=== PATIENT | female | born 1950 | race Caucasian/White ===

== ENCOUNTER 2017-08-06 20:41 | Emergency (ER) | payer OTHER ==
[2017-08-07] MEDS: IPRATROPIUM (NEB) 0.5 MG/2.5 ML AMP HHN (01:11)
[2017-08-07] MEDS: ALBUTEROL 0.083% (NEB) 2.5 MG/3 ML AMP NEB (01:11)
[2017-08-10] MEDS ORDERED: IPRATROPIUM (NEB) 0.5 MG/2.5 ML AMP NEB (16:43)
[2017-08-10] MEDS ORDERED: ALBUTEROL 0.083% (NEB) 2.5 MG/3 ML AMP NEB (16:43)
[2017-08-10] MEDS ORDERED: KETOROLAC 30 MG INJ IV (16:43)
[2017-08-10] MEDS ORDERED: SOD CHLORIDE 0.9% 500 ML IV (16:43)
== END 2017-08-07 03:45 | disposition home or self-care (01) ==
LOC: FTE 20:41
DX: J44.0 Chronic obstructive pulmonary disease with (acute) lower respiratory infection (principal); J20.9 Acute bronchitis, unspecified; Z79.82 Long term (current) use of aspirin
CPT/HCPCS: 71045; 94664; 99284-25

== ENCOUNTER 2017-08-10 13:55 | Inpatient (IN) | payer OTHER ==
[2017-08-10] MEDS: IPRATROPIUM (NEB) 0.5 MG/2.5 ML AMP NEB (17:17)
[2017-08-10] MEDS: ALBUTEROL 0.083% (NEB) 2.5 MG/3 ML AMP NEB (17:17)
[2017-08-10 17:20] LABS: ADD MAN DIFF? NO
[2017-08-10] MEDS: SOD CHLORIDE 0.9% 500 ML IV (17:24)
[2017-08-10] MEDS: KETOROLAC 30 MG INJ IV (17:27)
[2017-08-10 17:29] LABS: WHITE BLOOD COUNT 12.1 10^3/ul (4.8-10.8)
[2017-08-10 17:29] LABS: BASOPHILS % 0.2 % (0.0-2.0); HEMOGLOBIN 10.9 g/dl (12.0-16.0); LYMPHOCYTES # 3.4 10^3/ul (0.8-2.9); LYMPHOCYTES % 27.7 % (15.0-51.0); MEAN CORPUSCULAR HEMOGLOBIN 22.1 pg (29.0-33.0); MEAN CORPUSCULAR HGB CONC 32.1 g/dl (32.0-37.0); MONOCYTE # 0.4 10^3/ul (0.3-0.9); MONOCYTES % 3.2 % (0.0-11.0); NEUTROPHIL # 8.2 10^3/ul (1.6-7.5); NEUTROPHILS % 67.4 % (39.0-77.0); PLATELET COUNT 181 10^3/UL (140-415); RED BLOOD COUNT 4.93 10^6/ul (4.20-5.40); RED CELL DISTRIBUTION WIDTH 15.7 % (11.5-14.5)
[2017-08-10 17:49] LABS: INR 1.18; PROTIME 15.2 Sec (11.9-14.9); PT RATIO 1.2
[2017-08-10 17:50] LABS: PARTIAL THROMBOPLASTIN TIME 27.3 Sec (25.0-35.0)
[2017-08-10 17:52] LABS: D-DIMER 766.36 ng/ml (<460)
[2017-08-10 17:55] LABS: ANION GAP 17 (8-16); BLOOD UREA NITROGEN 12 mg/dl (7-20); CALCIUM 8.5 mg/dl (8.4-10.2); CARBON DIOXIDE 27 mmol/L (21-31); CHLORIDE 98 mmol/L (97-110); CREATININE 0.63 mg/dl (0.44-1.00); GLUCOSE 395 mg/dl (70-220); POTASSIUM 3.9 mmol/L (3.5-5.1); SODIUM 138 mmol/L (135-144)
[2017-08-10 18:07] LABS: TROPONIN-I < 0.012 ng/ml (0.00-0.12)
[2017-08-10] MEDS: IOHEXOL 100 ML (20:06)
[2017-08-10] MEDS: SOD CHLORIDE 0.9% 100 ML (20:06)
[2017-08-10] MEDS: IOHEXOL 350MG/ML 50 ML BTL (20:06)
[2017-08-10] MEDS: CEFTRIAXONE 1 GM/50 ML (PMX) 50 ML IVPB (22:20)
[2017-08-10] MEDS: AZITHROMYCIN 500MG/NS (PMX) 250 ML IV (22:20)
[2017-08-10] MEDS: SODIUM CHLORIDE 0.9% 1L BAG IV* (22:21)
[2017-08-10 22:29] LABS: LACTIC ACID 1.1 mmol/L (0.5-2.0)
[2017-08-10] MEDS ORDERED: ONDANSETRON 4 MG INJ IV ×2 (22:30→23:30)
[2017-08-10] MEDS ORDERED: ACETAMINOPHEN 325 MG TAB PO (22:30)
[2017-08-10] MEDS ORDERED: BISACODYL (EC) 5 MG TAB PO (23:30)
[2017-08-10] MEDS ORDERED: HYDROCODONE/APAP (5/325) TAB PO (23:30)
[2017-08-10] MEDS ORDERED: ALBUTEROL/IPRATROPIUM (NEB) 3 ML AMP HHN (23:30)
[2017-08-10] MEDS: SALMETEROL/FLUTICASONE 500/50 INHA INH (23:30)
[2017-08-10] MEDS ORDERED: NACL 0.9% 3 ML SYG IV (23:30)
[2017-08-10] MEDS ORDERED: DOCUSATE SODIUM 100 MG CAP PO (23:30)
[2017-08-10] MEDS ORDERED: GLUCAGON 1 MG INJ IM (23:45)
[2017-08-10] MEDS ORDERED: GLUCOSE GEL 15 GRAM TUBE PO ×2 (23:45)
[2017-08-10] MEDS ORDERED: DEXTROSE 50% 50 ML SYRINGE IV ×2 (23:45)
[2017-08-10] MEDS ORDERED: GLUCOSE GEL 15 GRAM TUBE BUCCAL (23:45)
[2017-08-10] MEDS: INSULIN REGULAR, HUMAN 100 UNIT/1 ML 3ML VIAL SC (23:58)
[2017-08-11] MEDS: ACCU-CHEK XX (01:56)
[2017-08-11 02:14] LABS: LACTIC ACID 1.7 mmol/L (0.5-2.0)
[2017-08-11] MEDS: LEVOFLOXACIN 750MG/D5W (PMX) 150 ML IVPB ×2 (04:00→06:51)
[2017-08-11 05:48] LABS: ADD MAN DIFF? NO
[2017-08-11 05:58] LABS: BASOPHILS % 0.1 % (0.0-2.0); EOSINOPHILS % 0.3 % (0.0-7.0); HEMOGLOBIN 9.1 g/dl (12.0-16.0); LYMPHOCYTES # 3.3 10^3/ul (0.8-2.9); MEAN CORPUSCULAR HEMOGLOBIN 21.9 pg (29.0-33.0); MEAN CORPUSCULAR HGB CONC 31.4 g/dl (32.0-37.0); MEAN CORPUSCULAR VOLUME 69.7 fl (82.0-101.0); MEAN PLATELET VOLUME 9.9 fl (7.4-10.4); MONOCYTE # 0.3 10^3/ul (0.3-0.9); MONOCYTES % 3.9 % (0.0-11.0); NEUTROPHIL # 4.1 10^3/ul (1.6-7.5); NEUTROPHILS % 52.4 % (39.0-77.0); PLATELET COUNT 171 10^3/UL (140-415); RED BLOOD COUNT 4.16 10^6/ul (4.20-5.40); RED CELL DISTRIBUTION WIDTH 15.9 % (11.5-14.5)
[2017-08-11 05:58] LABS: WHITE BLOOD COUNT 7.7 10^3/ul (4.8-10.8)
[2017-08-11 06:08] LABS: HEMOGLOBIN A1C 7.8 % (0-5.9)
[2017-08-11 06:21] LABS: LACTIC ACID 1.6 mmol/L (0.5-2.0)
[2017-08-11 06:30] LABS: ALANINE AMINOTRANSFERASE 30 IU/L (13-69); ALBUMIN 2.9 g/dl (3.3-4.9); ALBUMIN/GLOBULIN RATIO 1.81; ALKALINE PHOSPHATASE 85 IU/L (42-121); ANION GAP 16 (8-16); ASPARTATE AMINO TRANSFERASE 10 IU/L (15-46); BILIRUBIN,INDIRECT 0.1 mg/dl (0-1.1); BILIRUBIN,TOTAL 0.1 mg/dl (0.2-1.3); BLOOD UREA NITROGEN 10 mg/dl (7-20); CALCIUM 7.9 mg/dl (8.4-10.2); CARBON DIOXIDE 29 mmol/L (21-31); CHLORIDE 105 mmol/L (97-110); CHOL/HDL RATIO 3.7 RATIO; CHOLESTEROL 100 mg/dl (100-200); CREATININE 0.52 mg/dl (0.44-1.00); GLUCOSE 110 mg/dl (70-220); HDL CHOLESTEROL 27 mg/dl (35-98); LDL CHOLESTEROL,CALCULATED 46 mg/dl; POTASSIUM 3.7 mmol/L (3.5-5.1); SODIUM 146 mmol/L (135-144); TOTAL PROTEIN 4.5 g/dl (6.1-8.1); TRIGLYCERIDES 135 mg/dl (0-149)
[2017-08-11 06:57] LABS: THYROID STIMULATING HORMONE 0.953 MIU/L (0.465-4.680)
[2017-08-11] MEDS: INSULIN ASPART [NOVOLOG] 3 ML PEN SC ×4 (08:00→20:34)
[2017-08-11] MEDS: LORATADINE 10 MG TAB PO (08:52)
[2017-08-11] MEDS: SALMETEROL/FLUTICASONE 500/50 INHA INH ×2 (08:52→20:32)
[2017-08-11] MEDS ORDERED: VANCOMYCIN IV PER PHARMACY XX (09:30)
[2017-08-11] MEDS ORDERED: predniSONE 20 MG TAB PO (09:30)
[2017-08-11] MEDS ORDERED: FUROSEMIDE 40 MG TAB PO (11:00)
[2017-08-11 11:24] LABS: IRON 24 ug/dl (35-150)
[2017-08-11 11:34] LABS: % IRON SATURATION 12 % SAT (22-52); TOTAL IRON BINDING CAPACITY 206 ug/dl (241-421)
[2017-08-11] MEDS: predniSONE 20 MG TAB PO (11:53)
[2017-08-11 13:21] LABS: FERRITIN 88.8 ng/ml (11.1-264.0)
[2017-08-11] MEDS: VANCOMYCIN 1.5 GM in SOD CHLORIDE 0.9% 250 ML IVPB (14:31)
[2017-08-12] MEDS: VANCOMYCIN 1 GM 250 ML IVPB ×2 (01:06→12:14)
[2017-08-12] MEDS: ACCU-CHEK XX (02:00)
[2017-08-12] MEDS: LEVOFLOXACIN 750MG/D5W (PMX) 150 ML IVPB (04:08)
[2017-08-12] MEDS: INSULIN ASPART [NOVOLOG] 3 ML PEN SC ×6 (07:57→20:55)
[2017-08-12] MEDS: LORATADINE 10 MG TAB PO (08:00)
[2017-08-12] MEDS: predniSONE 20 MG TAB PO (08:00)
[2017-08-12] MEDS: SALMETEROL/FLUTICASONE 500/50 INHA INH ×2 (08:00→20:53)
[2017-08-12 11:22] LABS: ADD MAN DIFF? NO
[2017-08-12 11:26] LABS: WHITE BLOOD COUNT 8.2 10^3/ul (4.8-10.8)
[2017-08-12 11:27] LABS: BASOPHILS % 0.1 % (0.0-2.0); EOSINOPHILS % 0.2 % (0.0-7.0); HEMATOCRIT 29.9 % (37.0-47.0); HEMOGLOBIN 9.7 g/dl (12.0-16.0); LYMPHOCYTES % 24.5 % (15.0-51.0); MEAN CORPUSCULAR HEMOGLOBIN 22.2 pg (29.0-33.0); MEAN CORPUSCULAR HGB CONC 32.4 g/dl (32.0-37.0); MEAN CORPUSCULAR VOLUME 68.6 fl (82.0-101.0); MEAN PLATELET VOLUME 9.9 fl (7.4-10.4); MONOCYTE # 0.2 10^3/ul (0.3-0.9); MONOCYTES % 2.1 % (0.0-11.0); NEUTROPHIL # 5.9 10^3/ul (1.6-7.5); NEUTROPHILS % 72.2 % (39.0-77.0); PLATELET COUNT 223 10^3/UL (140-415); RED BLOOD COUNT 4.36 10^6/ul (4.20-5.40); RED CELL DISTRIBUTION WIDTH 15.6 % (11.5-14.5)
[2017-08-12 11:47] LABS: ANION GAP 17 (8-16); BLOOD UREA NITROGEN 13 mg/dl (7-20); CALCIUM 8.1 mg/dl (8.4-10.2); CARBON DIOXIDE 23 mmol/L (21-31); CHLORIDE 102 mmol/L (97-110); CREATININE 0.55 mg/dl (0.44-1.00); GLUCOSE 291 mg/dl (70-220); POTASSIUM 3.5 mmol/L (3.5-5.1); SODIUM 138 mmol/L (135-144)
[2017-08-12 20:23] LABS: NIL 0.15 IU/mL; QUANTIFERON(R)-TB GOLD NEGATIVE (NEGATIVE); TB-NIL 0.09 IU/mL
[2017-08-12] MEDS: INSULIN GLARGINE [LANtus] 3 ML PEN SC (20:54)
[2017-08-13 01:23] LABS: VANCOMYCIN,TROUGH 6.6 ug/ml (10.0-20.0)
[2017-08-13] MEDS: VANCOMYCIN 1 GM 250 ML IVPB ×3 (01:33→17:42)
[2017-08-13] MEDS: ACCU-CHEK XX (01:41)
[2017-08-13] MEDS ORDERED: ACCU-CHEK XX (02:00)
[2017-08-13] MEDS: LEVOFLOXACIN 750MG/D5W (PMX) 150 ML IVPB (04:25)
[2017-08-13 06:49] LABS: ADD MAN DIFF? NO
[2017-08-13 06:52] LABS: BASOPHILS % 0.1 % (0.0-2.0); EOSINOPHILS # 0.1 10^3/ul (0.0-0.5); EOSINOPHILS % 0.9 % (0.0-7.0); HEMATOCRIT 29.7 % (37.0-47.0); HEMOGLOBIN 9.6 g/dl (12.0-16.0); LYMPHOCYTES # 4.2 10^3/ul (0.8-2.9); LYMPHOCYTES % 45.5 % (15.0-51.0); MEAN CORPUSCULAR HEMOGLOBIN 22.3 pg (29.0-33.0); MEAN CORPUSCULAR HGB CONC 32.3 g/dl (32.0-37.0); MEAN CORPUSCULAR VOLUME 68.9 fl (82.0-101.0); MEAN PLATELET VOLUME 9.8 fl (7.4-10.4); MONOCYTE # 0.3 10^3/ul (0.3-0.9); MONOCYTES % 3.5 % (0.0-11.0); NEUTROPHIL # 4.5 10^3/ul (1.6-7.5); NEUTROPHILS % 48.7 % (39.0-77.0); PLATELET COUNT 271 10^3/UL (140-415); RED BLOOD COUNT 4.31 10^6/ul (4.20-5.40); RED CELL DISTRIBUTION WIDTH 15.4 % (11.5-14.5)
[2017-08-13 06:52] LABS: WHITE BLOOD COUNT 9.3 10^3/ul (4.8-10.8)
[2017-08-13 07:18] LABS: ANION GAP 16 (8-16); BLOOD UREA NITROGEN 14 mg/dl (7-20); CALCIUM 8.3 mg/dl (8.4-10.2); CARBON DIOXIDE 23 mmol/L (21-31); CHLORIDE 107 mmol/L (97-110); GLUCOSE 138 mg/dl (70-220); SODIUM 143 mmol/L (135-144)
[2017-08-13] MEDS: INSULIN ASPART [NOVOLOG] 3 ML PEN SC ×7 (08:00→20:44)
[2017-08-13] MEDS: SALMETEROL/FLUTICASONE 500/50 INHA INH ×2 (09:06→20:42)
[2017-08-13] MEDS: predniSONE 10 MG TAB PO (09:06)
[2017-08-13] MEDS: LORATADINE 10 MG TAB PO (09:07)
[2017-08-13] MEDS: POTASSIUM CHLORIDE (SR) 20 MEQ TAB PO (12:42)
[2017-08-13] MEDS: INSULIN GLARGINE [LANtus] 3 ML PEN SC (20:44)
[2017-08-14] MEDS: VANCOMYCIN 1 GM 250 ML IVPB ×2 (00:31→10:20)
[2017-08-14] MEDS: ACETAMINOPHEN 325 MG TAB PO (00:35)
[2017-08-14] MEDS: ACCU-CHEK XX (02:00)
[2017-08-14] MEDS: LEVOFLOXACIN 750MG/D5W (PMX) 150 ML IVPB (04:16)
[2017-08-14] MEDS: LORATADINE 10 MG TAB PO (08:18)
[2017-08-14] MEDS: SALMETEROL/FLUTICASONE 500/50 INHA INH (08:18)
[2017-08-14] MEDS: predniSONE 10 MG TAB PO (08:18)
[2017-08-14] MEDS: INSULIN ASPART [NOVOLOG] 3 ML PEN SC ×4 (08:20→12:05)
== END 2017-08-14 14:50 | disposition home or self-care (01) | DRG 195 ==
LOC: PP2 22:03 → E/R 13:55 → PP2 08-11 14:17 → E/R 13:55
DX: J18.9 Pneumonia, unspecified organism (principal); J84.10 Pulmonary fibrosis, unspecified; E11.65 Type 2 diabetes mellitus with hyperglycemia; J44.9 Chronic obstructive pulmonary disease, unspecified; R16.1 Splenomegaly, not elsewhere classified; D50.9 Iron deficiency anemia, unspecified; R63.4 Abnormal weight loss; Z68.29 Body mass index [BMI] 29.0-29.9, adult; D63.8 Anemia in other chronic diseases classified elsewhere; Z90.710 Acquired absence of both cervix and uterus; Z79.4 Long term (current) use of insulin
CPT/HCPCS: 36415; 71045; 71275; 80048; 80053; 80061; 80202; 82728; 82962; 83036; 83540; 83605; 84443; 84484; 85025; 85378; 85610; 85730; 86480; 87040; 87070; 87116; 94664; 96372; 96374; 96375; 99285-25

== ENCOUNTER 2018-03-25 09:59 | Emergency (ER) | payer MEDICARE, MEDICAID, OTHER ==
[2018-03-25] MEDS ORDERED: DEXAMETHASONE 10 MG/ML 1 ML INJ IM (11:30)
[2018-03-25 11:39] LABS: URINE BLOOD (Dip) POC Negative (NEGATIVE); URINE KETONES (Dip) POC Negative (NEGATIVE); URINE LEUKOCYTE EST (Dip) POC Negative (NEGATIVE); URINE NITRITE (Dip) POC Negative (NEGATIVE); URINE TOTAL PROTEIN POC Negative (NEGATIVE)
[2018-03-25] MEDS: ALBUTEROL 0.083% (NEB) 2.5 MG/3 ML AMP INH (11:42)
[2018-03-25] MEDS: DEXAMETHASONE 10 MG/ML 1 ML INJ IM (12:06)
[2018-03-25 13:01] LABS: TROPONIN-I < 0.012 ng/ml (0.000-0.120)
== END 2018-03-25 13:40 | disposition home or self-care (01) ==
LOC: FTE 09:59
DX: L29.9 Pruritus, unspecified (principal); J44.9 Chronic obstructive pulmonary disease, unspecified
CPT/HCPCS: 81003; 84484; 93005; 94664; 96372; 99284-25

== ENCOUNTER 2018-06-27 18:17 | Emergency (ER) | payer MEDICARE, OTHER, MEDICAID ==
[2018-06-27] MEDS: ALBUTEROL 0.083% (NEB) 2.5 MG/3 ML AMP NEB (19:55)
[2018-06-27] MEDS: IPRATROPIUM (NEB) 0.5 MG/2.5 ML AMP NEB (19:55)
[2018-06-27] MEDS: KETOROLAC 30 MG INJ IM (21:43)
== END 2018-06-27 21:59 | disposition home or self-care (01) ==
LOC: FTE 18:17
DX: R06.02 Shortness of breath (principal); J44.9 Chronic obstructive pulmonary disease, unspecified
CPT/HCPCS: 71046; 87400; 93005; 94644; 96372; 99285-25

== ENCOUNTER 2018-07-31 17:24 | Emergency (ER) | payer MEDICARE, OTHER ==
[2018-07-31] MEDS: ONDANSETRON 4 MG INJ IV ×2 (18:36→20:24)
[2018-07-31] MEDS: HYDROmorphONE 1 MG/ML SYG IV ×2 (18:37→20:25)
[2018-07-31 18:45] LABS: ADD MAN DIFF? NO
[2018-07-31 18:50] LABS: BASOPHILS % 0.3 % (0.0-2.0); EOSINOPHILS # 0.2 10^3/ul (0.0-0.5); EOSINOPHILS % 3.4 % (0.0-7.0); HEMATOCRIT 30.1 % (37.0-47.0); HEMOGLOBIN 9.2 g/dl (12.0-16.0); LYMPHOCYTES # 2.6 10^3/ul (0.8-2.9); LYMPHOCYTES % 39.4 % (15.0-51.0); MEAN CORPUSCULAR HGB CONC 30.6 g/dl (32.0-37.0); MEAN CORPUSCULAR VOLUME 71.8 fl (82.0-101.0); MEAN PLATELET VOLUME 9.5 fl (7.4-10.4); MONOCYTE # 0.3 10^3/ul (0.3-0.9); MONOCYTES % 4.9 % (0.0-11.0); NEUTROPHIL # 3.4 10^3/ul (1.6-7.5); NEUTROPHILS % 51.5 % (39.0-77.0); PLATELET COUNT 162 10^3/UL (140-415); RED BLOOD COUNT 4.19 10^6/ul (4.20-5.40); RED CELL DISTRIBUTION WIDTH 14.6 % (11.5-14.5)
[2018-07-31 18:50] LABS: WHITE BLOOD COUNT 6.5 10^3/ul (4.8-10.8)
[2018-07-31 19:05] LABS: ADD UMIC YES; UR ASCORBIC ACID NEGATIVE (NEGATIVE); UR BILIRUBIN (Dip) NEGATIVE (NEGATIVE); UR BLOOD (Dip) NEGATIVE (NEGATIVE); UR CLARITY SLIGHTLY CLOUDY (CLEAR); UR COLOR YELLOW (YELLOW); UR GLUCOSE (Dip) NEGATIVE (NEGATIVE); UR KETONES (Dip) NEGATIVE (NEGATIVE); UR LEUKOCYTE ESTERASE (Dip) 1+ Leu/ul (NEGATIVE); UR MUCUS FEW /HPF (NONE SEEN); UR NITRITE (Dip) NEGATIVE (NEGATIVE); UR RBC 3 /HPF (0-5); UR SPECIFIC GRAVITY (Dip) 1.026 (1.003-1.030); UR SQUAMOUS EPITHELIAL CELL FEW /HPF (FEW); UR TOTAL PROTEIN (Dip) 1+ mg/dl (NEGATIVE); UR UROBILINOGEN (Dip) 1+ mg/dL (NEGATIVE); UR WBC 15 /HPF (0-5)
[2018-07-31 19:09] LABS: ALANINE AMINOTRANSFERASE 22 IU/L (13-69); ALBUMIN 3.6 g/dl (3.3-4.9); ALBUMIN/GLOBULIN RATIO 1.71; ALKALINE PHOSPHATASE 90 IU/L (42-121); ANION GAP 10 (5-13); ASPARTATE AMINO TRANSFERASE 18 IU/L (15-46); BILIRUBIN,INDIRECT 0.4 mg/dl (0-1.1); BILIRUBIN,TOTAL 0.4 mg/dl (0.2-1.3); BLOOD UREA NITROGEN 15 mg/dl (7-20); CALCIUM 9.3 mg/dl (8.4-10.2); CARBON DIOXIDE 28 mmol/L (21-31); CHLORIDE 104 mmol/L (97-110); CREATININE 0.52 mg/dl (0.44-1.00); Estimated GFR > 60 mL/min (>60); GLUCOSE 137 mg/dl (70-220); LIPASE 144 U/L (23-300); POTASSIUM 3.9 mmol/L (3.5-5.1); SODIUM 142 mmol/L (135-144); TOTAL PROTEIN 5.7 g/dl (6.1-8.1)
[2018-07-31] MEDS: ALBUTEROL 0.083% (NEB) 2.5 MG/3 ML AMP NEB (20:40)
== END 2018-07-31 21:05 | disposition home or self-care (01) ==
LOC: E/R 17:24
DX: K80.20 Calculus of gallbladder without cholecystitis without obstruction (principal); J44.9 Chronic obstructive pulmonary disease, unspecified
CPT/HCPCS: 36415; 71045; 76705; 80053; 81001; 83690; 85025; 94664; 96374; 96375; 96376; 99285-25

== ENCOUNTER 2018-09-23 05:36 | Day surgery (SDC) | payer MEDICARE, OTHER ==
[2018-09-23] MEDS ORDERED: SOD CHLORIDE 0.9% 1,000 ML IV (06:00)
[2018-09-23] MEDS ORDERED: CLINDAMYCIN 600 MG/D5W (PMX) 50 ML IVPB (06:00)
[2018-09-23] MEDS ORDERED: PROPOFOL 20 ML (07:02)
[2018-09-23] MEDS ORDERED: LIDOCAINE 100 MG SYRINGE (07:02)
[2018-09-23] MEDS ORDERED: ROCURONIUM 50 MG INJ (07:02)
[2018-09-23] MEDS ORDERED: FENTAnyl 50 MCG/ML VIAL ×2 (07:03→08:26)
[2018-09-23] MEDS ORDERED: PROVENTIL HFA 6.7GM INHALER (07:03)
[2018-09-23] MEDS ORDERED: SUGAMMADEX SODIUM 200 MG/2 ML VIAL IV (07:03)
[2018-09-23] MEDS ORDERED: ONDANSETRON 4 MG INJ (07:03)
[2018-09-23] MEDS ORDERED: DEXAMETHASONE 4 MG/ML 5 ML INJ (07:03)
[2018-09-23] MEDS ORDERED: MEPERIDINE 25 MG INJ IV (08:00)
[2018-09-23] MEDS ORDERED: hydrALAzine 20 MG INJ IV (08:00)
[2018-09-23] MEDS ORDERED: HYDROmorphONE 1 MG/5 ML IV SYRINGE IV (08:00)
[2018-09-23] MEDS ORDERED: METOCLOPRAMIDE 10 MG INJ IV (08:00)
[2018-09-23] MEDS ORDERED: FENTAnyl 50 MCG/ML VIAL IV ×2 (08:00)
[2018-09-23] MEDS ORDERED: LABETALOL HCL 20MG INJ IV (08:00)
[2018-09-23] MEDS: BUPIVACAINE 0.25% (MPF) 30 ML INJ (08:20)
[2018-09-23] MEDS: ONDANSETRON 4 MG INJ IV (09:04)
[2018-09-23] MEDS: HYDROmorphONE 1 MG/5 ML IV SYRINGE IV (09:04)
[2018-09-23] MEDS: HYDROCODONE/APAP (5/325) TAB PO (09:17)
== END 2018-09-23 10:35 | disposition home or self-care (01) ==
LOC: SDS 05:36
DX: K80.10 Calculus of gallbladder with chronic cholecystitis without obstruction (principal); E11.9 Type 2 diabetes mellitus without complications; J44.9 Chronic obstructive pulmonary disease, unspecified; Z87.891 Personal history of nicotine dependence
CPT/HCPCS: 47562; 82962; 88304

== ENCOUNTER 2018-10-13 19:24 | Emergency (ER) | payer MEDICARE, OTHER ==
[2018-10-13 21:46] LABS: ADD MAN DIFF? NO
[2018-10-13 21:48] LABS: WHITE BLOOD COUNT 10.6 10^3/ul (4.8-10.8)
[2018-10-13 21:48] LABS: BASOPHIL # 0.1 10^3/ul (0.0-0.1); BASOPHILS % 0.6 % (0.0-2.0); EOSINOPHILS # 0.1 10^3/ul (0.0-0.5); HEMATOCRIT 32.4 % (37.0-47.0); HEMOGLOBIN 9.9 g/dl (12.0-16.0); LYMPHOCYTES # 4.7 10^3/ul (0.8-2.9); LYMPHOCYTES % 44.2 % (15.0-51.0); MEAN CORPUSCULAR HEMOGLOBIN 21.2 pg (29.0-33.0); MEAN CORPUSCULAR HGB CONC 30.6 g/dl (32.0-37.0); MEAN CORPUSCULAR VOLUME 69.5 fl (82.0-101.0); MEAN PLATELET VOLUME 9.1 fl (7.4-10.4); MONOCYTE # 0.7 10^3/ul (0.3-0.9); MONOCYTES % 6.4 % (0.0-11.0); NEUTROPHILS % 47.2 % (39.0-77.0); PLATELET COUNT 195 10^3/UL (140-415); RED BLOOD COUNT 4.66 10^6/ul (4.20-5.40); RED CELL DISTRIBUTION WIDTH 16.2 % (11.5-14.5)
[2018-10-13] MEDS: METOCLOPRAMIDE 10 MG INJ IV (21:59)
[2018-10-13] MEDS: SOD CHLORIDE 0.9% 1,000 ML IV (21:59)
[2018-10-13 22:05] LABS: ADD UMIC YES; UR ASCORBIC ACID NEGATIVE (NEGATIVE); UR BACTERIA FEW /HPF (NONE SEEN); UR BILIRUBIN (Dip) NEGATIVE (NEGATIVE); UR BLOOD (Dip) 1+ mg/dL (NEGATIVE); UR CLARITY CLOUDY (CLEAR); UR COLOR YELLOW (YELLOW); UR GLUCOSE (Dip) NEGATIVE (NEGATIVE); UR KETONES (Dip) NEGATIVE (NEGATIVE); UR LEUKOCYTE ESTERASE (Dip) 3+ Leu/ul (NEGATIVE); UR NITRITE (Dip) NEGATIVE (NEGATIVE); UR RBC 6 /HPF (0-5); UR SQUAMOUS EPITHELIAL CELL FEW /HPF (FEW); UR TOTAL PROTEIN (Dip) 1+ mg/dl (NEGATIVE); UR UROBILINOGEN (Dip) NEGATIVE (NEGATIVE); UR WBC 77 /HPF (0-5)
[2018-10-13 22:22] LABS: ALANINE AMINOTRANSFERASE 22 IU/L (13-69); ALBUMIN 3.9 g/dl (3.3-4.9); ALBUMIN/GLOBULIN RATIO 1.62; ALKALINE PHOSPHATASE 100 IU/L (42-121); ANION GAP 10 (5-13); ASPARTATE AMINO TRANSFERASE 22 IU/L (15-46); BILIRUBIN,INDIRECT 0.8 mg/dl (0-1.1); BILIRUBIN,TOTAL 0.8 mg/dl (0.2-1.3); BLOOD UREA NITROGEN 16 mg/dl (7-20); CALCIUM 8.8 mg/dl (8.4-10.2); CARBON DIOXIDE 23 mmol/L (21-31); CHLORIDE 98 mmol/L (97-110); Estimated GFR > 60 mL/min (>60); GLUCOSE 105 mg/dl (70-220); LIPASE 119 U/L (23-300); POTASSIUM 4.5 mmol/L (3.5-5.1); SODIUM 131 mmol/L (135-144); TOTAL PROTEIN 6.3 g/dl (6.1-8.1)
[2018-10-13] MEDS: LEVOFLOXACIN 750MG/D5W (PMX) 150 ML IVPB (22:46)
== END 2018-10-13 23:40 | disposition home or self-care (01) ==
LOC: E/R 23:40
DX: N30.00 Acute cystitis without hematuria (principal); I10 Essential (primary) hypertension; R14.2 Eructation
CPT/HCPCS: 36415; 74176; 80053; 81001; 83690; 85025; 87086; 96374; 96375; 99285-25

== ENCOUNTER 2018-10-16 19:46 | Inpatient (IN) | payer MEDICARE, OTHER ==
[2018-10-16 20:19] LABS: URINE BLOOD (Dip) POC Negative (NEGATIVE); URINE GLUCOSE (Dip) POC Negative (NEGATIVE); URINE KETONES (Dip) POC Negative (NEGATIVE); URINE LEUKOCYTE EST (Dip) POC 1+ (NEGATIVE); URINE NITRITE (Dip) POC Negative (NEGATIVE); URINE TOTAL PROTEIN POC 1+ (NEGATIVE)
[2018-10-16] MEDS: SOD CHLORIDE 0.9% 1,000 ML IV ×2 (20:33→23:12)
[2018-10-16] MEDS: ONDANSETRON 4 MG INJ IV ×2 (20:34→22:08)
[2018-10-16] MEDS: morphine 4 MG/ML VIAL IV (20:35)
[2018-10-16] MEDS: KETOROLAC 30 MG INJ IV (20:35)
[2018-10-16 20:45] LABS: ADD MAN DIFF? NO
[2018-10-16 20:48] LABS: WHITE BLOOD COUNT 7.4 10^3/ul (4.8-10.8)
[2018-10-16 20:48] LABS: BASOPHILS % 0.1 % (0.0-2.0); EOSINOPHILS % 0.4 % (0.0-7.0); HEMATOCRIT 31.6 % (37.0-47.0); HEMOGLOBIN 9.7 g/dl (12.0-16.0); LYMPHOCYTES # 2.7 10^3/ul (0.8-2.9); LYMPHOCYTES % 35.7 % (15.0-51.0); MEAN CORPUSCULAR HGB CONC 30.7 g/dl (32.0-37.0); MEAN CORPUSCULAR VOLUME 68.3 fl (82.0-101.0); MEAN PLATELET VOLUME 9.3 fl (7.4-10.4); MONOCYTE # 0.5 10^3/ul (0.3-0.9); MONOCYTES % 6.6 % (0.0-11.0); NEUTROPHIL # 4.2 10^3/ul (1.6-7.5); NEUTROPHILS % 56.8 % (39.0-77.0); PLATELET COUNT 220 10^3/UL (140-415); RED BLOOD COUNT 4.63 10^6/ul (4.20-5.40); RED CELL DISTRIBUTION WIDTH 15.9 % (11.5-14.5)
[2018-10-16 20:51] LABS: ADD UMIC YES; UR ASCORBIC ACID NEGATIVE (NEGATIVE); UR BILIRUBIN (Dip) NEGATIVE (NEGATIVE); UR BLOOD (Dip) NEGATIVE (NEGATIVE); UR CLARITY CLEAR (CLEAR); UR COLOR YELLOW (YELLOW); UR GLUCOSE (Dip) NEGATIVE (NEGATIVE); UR KETONES (Dip) NEGATIVE (NEGATIVE); UR LEUKOCYTE ESTERASE (Dip) 1+ Leu/ul (NEGATIVE); UR NITRITE (Dip) NEGATIVE (NEGATIVE); UR RBC 2 /HPF (0-5); UR SPECIFIC GRAVITY (Dip) 1.017 (1.003-1.030); UR TOTAL PROTEIN (Dip) 1+ mg/dl (NEGATIVE); UR UROBILINOGEN (Dip) 1+ mg/dL (NEGATIVE); UR WBC 15 /HPF (0-5)
[2018-10-16 21:04] LABS: ALANINE AMINOTRANSFERASE 52 IU/L (13-69); ALBUMIN 3.8 g/dl (3.3-4.9); ALBUMIN/GLOBULIN RATIO 1.46; ALKALINE PHOSPHATASE 192 IU/L (42-121); ANION GAP 13 (5-13); ASPARTATE AMINO TRANSFERASE 42 IU/L (15-46); BILIRUBIN,INDIRECT 0.7 mg/dl (0-1.1); BILIRUBIN,TOTAL 0.7 mg/dl (0.2-1.3); BLOOD UREA NITROGEN 16 mg/dl (7-20); CALCIUM 9.1 mg/dl (8.4-10.2); CARBON DIOXIDE 25 mmol/L (21-31); CHLORIDE 96 mmol/L (97-110); Estimated GFR > 60 mL/min (>60); GLUCOSE 140 mg/dl (70-220); LIPASE 80 U/L (23-300); SODIUM 134 mmol/L (135-144); TOTAL PROTEIN 6.4 g/dl (6.1-8.1)
[2018-10-16] MEDS: HYDROmorphONE 1 MG/ML SYG IV (22:08)
[2018-10-16] MEDS ORDERED: ALBUTEROL/IPRATROPIUM (NEB) 3 ML AMP HHN (22:30)
[2018-10-16] MEDS ORDERED: DIPHENHYDRAMINE 25 MG CAP PO (22:30)
[2018-10-16] MEDS ORDERED: GUAIFENESIN/CODEINE 5ML CUP PO (22:30)
[2018-10-16] MEDS ORDERED: ACETAMINOPHEN 325 MG TAB PO (22:30)
[2018-10-16] MEDS ORDERED: NACL 0.9% 3 ML SYG IV (22:30)
[2018-10-16] MEDS ORDERED: ONDANSETRON 4 MG INJ IV ×2 (22:30)
[2018-10-16] MEDS ORDERED: IBUPROFEN 400 MG TAB PO (22:30)
[2018-10-16] MEDS ORDERED: DICYCLOMINE 10 MG CAP PO (22:30)
[2018-10-16] MEDS ORDERED: ALBUTEROL 18 GM INHALER INH (22:30)
[2018-10-16] MEDS ORDERED: ALBUTEROL HFA 8 GM INHALER INH (23:00)
[2018-10-16] MEDS: LEVOFLOXACIN 500MG/D5W (PMX) 100 ML IVPB (23:37)
[2018-10-17] MEDS: HYDROCODONE/APAP (10/325) TAB PO ×2 (01:59→21:21)
[2018-10-17] MEDS ORDERED: GLUCAGON 1 MG INJ IM (02:30)
[2018-10-17] MEDS ORDERED: GLUCOSE GEL 15 GRAM TUBE PO ×2 (02:30)
[2018-10-17] MEDS ORDERED: GLUCOSE GEL 15 GRAM TUBE BUCCAL (02:30)
[2018-10-17] MEDS ORDERED: DEXTROSE 50% 50 ML SYRINGE IV ×2 (02:30)
[2018-10-17 05:20] LABS: ADD MAN DIFF? NO
[2018-10-17 05:41] LABS: BASOPHILS % 0.1 % (0.0-2.0); EOSINOPHILS % 0.4 % (0.0-7.0); HEMATOCRIT 26.3 % (37.0-47.0); HEMOGLOBIN 8.2 g/dl (12.0-16.0); LYMPHOCYTES # 2.4 10^3/ul (0.8-2.9); LYMPHOCYTES % 32.8 % (15.0-51.0); MEAN CORPUSCULAR HEMOGLOBIN 21.4 pg (29.0-33.0); MEAN CORPUSCULAR HGB CONC 31.2 g/dl (32.0-37.0); MEAN CORPUSCULAR VOLUME 68.7 fl (82.0-101.0); MEAN PLATELET VOLUME 9.6 fl (7.4-10.4); MONOCYTE # 0.5 10^3/ul (0.3-0.9); MONOCYTES % 7.1 % (0.0-11.0); NEUTROPHIL # 4.4 10^3/ul (1.6-7.5); NEUTROPHILS % 58.9 % (39.0-77.0); PLATELET COUNT 194 10^3/UL (140-415); RED BLOOD COUNT 3.83 10^6/ul (4.20-5.40); RED CELL DISTRIBUTION WIDTH 15.9 % (11.5-14.5)
[2018-10-17 05:41] LABS: WHITE BLOOD COUNT 7.4 10^3/ul (4.8-10.8)
[2018-10-17 05:58] LABS: ALANINE AMINOTRANSFERASE 43 IU/L (13-69); ALBUMIN 3.1 g/dl (3.3-4.9); ALBUMIN/GLOBULIN RATIO 1.47; ALKALINE PHOSPHATASE 137 IU/L (42-121); ANION GAP 7 (5-13); ASPARTATE AMINO TRANSFERASE 27 IU/L (15-46); BILIRUBIN,INDIRECT 0.8 mg/dl (0-1.1); BILIRUBIN,TOTAL 0.8 mg/dl (0.2-1.3); BLOOD UREA NITROGEN 13 mg/dl (7-20); CALCIUM 8.6 mg/dl (8.4-10.2); CARBON DIOXIDE 25 mmol/L (21-31); CHLORIDE 102 mmol/L (97-110); CHOL/HDL RATIO 4.3 RATIO; CHOLESTEROL 121 mg/dl (100-200); CREATININE 0.63 mg/dl (0.44-1.00); Estimated GFR > 60 mL/min (>60); GLUCOSE 125 mg/dl (70-220); HDL CHOLESTEROL 28 mg/dl (35-98); LDL CHOLESTEROL,CALCULATED 72 mg/dl; PHOSPHORUS 3.8 mg/dl (2.5-4.9); SODIUM 134 mmol/L (135-144); TOTAL PROTEIN 5.2 g/dl (6.1-8.1); TRIGLYCERIDES 105 mg/dl (0-149)
[2018-10-17 06:20] LABS: HEMOGLOBIN A1C 7.1 % (0-5.9)
[2018-10-17] MEDS: INSULIN ASPART [NOVOLOG] 3 ML PEN SC ×4 (08:00→21:12)
[2018-10-17] MEDS: ACETAMINOPHEN 325 MG TAB PO (08:46)
[2018-10-17] MEDS: LORATADINE 10 MG TAB PO (08:46)
[2018-10-17] MEDS ORDERED: NON-FORMULARY/PATIENT OWN MED (Cetirizine Hcl* (Zyrtec*) 10 MG) PO (09:00)
[2018-10-17] MEDS: SOD CHLORIDE 0.9% 1,000 ML IV ×2 (12:12→15:17)
[2018-10-17] MEDS: morphine 2 MG INJ IV (14:03)
[2018-10-17 14:29] LABS: IRON < 10 ug/dl (35-150)
[2018-10-17 14:36] LABS: TOTAL IRON BINDING CAPACITY 236 ug/dl (241-421)
[2018-10-17] MEDS: METHYLPREDNISOLONE 125 MG INJ IV (15:13)
[2018-10-17] MEDS: HEPARIN 5,000 UNIT/1 ML VIAL SC ×2 (15:14→21:13)
[2018-10-17] MEDS: IOHEXOL 14.3 MG(I)/ML (ADULT) BTL PO (16:15)
[2018-10-17] MEDS: BUDESONIDE (NEB) 0.5MG/2ML AMP HHN (20:27)
[2018-10-17] MEDS: ARFORMOTEROL TARTRATE 15MCG/2 ML AMP HHN (20:27)
[2018-10-17] MEDS: LEVOFLOXACIN 500MG/D5W (PMX) 100 ML IVPB (21:26)
[2018-10-18] MEDS: SOD CHLORIDE 0.9% 1,000 ML IV ×3 (05:00→20:02)
[2018-10-18 06:01] LABS: ADD MAN DIFF? NO
[2018-10-18 06:39] LABS: ANION GAP 7 (5-13); BLOOD UREA NITROGEN 17 mg/dl (7-20); CARBON DIOXIDE 28 mmol/L (21-31); CHLORIDE 103 mmol/L (97-110); CREATININE 0.62 mg/dl (0.44-1.00); Estimated GFR > 60 mL/min (>60); GLUCOSE 226 mg/dl (70-220); POTASSIUM 4.3 mmol/L (3.5-5.1); SODIUM 138 mmol/L (135-144)
[2018-10-18 06:47] LABS: BASOPHILS % 0.2 % (0.0-2.0); HEMOGLOBIN 8.8 g/dl (12.0-16.0); LYMPHOCYTES # 1.9 10^3/ul (0.8-2.9); LYMPHOCYTES % 33.4 % (15.0-51.0); MEAN CORPUSCULAR HEMOGLOBIN 21.2 pg (29.0-33.0); MEAN CORPUSCULAR HGB CONC 30.3 g/dl (32.0-37.0); MEAN CORPUSCULAR VOLUME 69.9 fl (82.0-101.0); MEAN PLATELET VOLUME 9.3 fl (7.4-10.4); MONOCYTE # 0.3 10^3/ul (0.3-0.9); NEUTROPHIL # 3.5 10^3/ul (1.6-7.5); NEUTROPHILS % 60.5 % (39.0-77.0); PLATELET COUNT 196 10^3/UL (140-415); RED BLOOD COUNT 4.15 10^6/ul (4.20-5.40); RED CELL DISTRIBUTION WIDTH 15.7 % (11.5-14.5)
[2018-10-18 06:47] LABS: WHITE BLOOD COUNT 5.8 10^3/ul (4.8-10.8)
[2018-10-18 07:53] LABS: MAGNESIUM 2.4 mg/dl (1.7-2.5)
[2018-10-18 07:53] LABS: PHOSPHORUS 4.2 mg/dl (2.5-4.9)
[2018-10-18] MEDS: BUDESONIDE (NEB) 0.5MG/2ML AMP HHN ×2 (08:02→20:48)
[2018-10-18] MEDS: ARFORMOTEROL TARTRATE 15MCG/2 ML AMP HHN ×2 (08:02→20:48)
[2018-10-18] MEDS: INSULIN ASPART [NOVOLOG] 3 ML PEN SC ×5 (08:40→20:33)
[2018-10-18] MEDS: HEPARIN 5,000 UNIT/1 ML VIAL SC ×2 (08:41→20:34)
[2018-10-18] MEDS: SOD CHLORIDE 0.9% 100 ML (08:43)
[2018-10-18] MEDS: IOHEXOL 300MG/ML 150 ML BTL (08:44)
[2018-10-18] MEDS: LORATADINE 10 MG TAB PO (09:59)
[2018-10-18] MEDS: LIDOCAINE 2% VISC 15 ML CUP PO (09:59)
[2018-10-18] MEDS: SOD FERRIC GLUC COMPLX 125 MG in SOD CHLORIDE 0.9% 100 ML IVPB (12:02)
[2018-10-18] MEDS ORDERED: ALBUTEROL HFA 8 GM INHALER INH (13:00)
[2018-10-18] MEDS: morphine 2 MG INJ IV (20:02)
[2018-10-18] MEDS: INSULIN GLARGINE [LANTus] (100 UNITS/ML) SYG SC (20:33)
[2018-10-18] MEDS: LEVOFLOXACIN 500MG/D5W (PMX) 100 ML IVPB (22:33)
[2018-10-19] MEDS: INSULIN ASPART [NOVOLOG] 3 ML PEN SC ×9 (01:00→21:00)
[2018-10-19] MEDS: morphine 2 MG INJ IV ×3 (01:03→16:00)
[2018-10-19 06:15] LABS: ADD MAN DIFF? NO
[2018-10-19 06:27] LABS: WHITE BLOOD COUNT 8.9 10^3/ul (4.8-10.8)
[2018-10-19 06:27] LABS: BASOPHILS % 0.2 % (0.0-2.0); EOSINOPHILS % 0.5 % (0.0-7.0); HEMATOCRIT 31.7 % (37.0-47.0); HEMOGLOBIN 9.5 g/dl (12.0-16.0); LYMPHOCYTES % 45.3 % (15.0-51.0); MEAN CORPUSCULAR VOLUME 70.1 fl (82.0-101.0); MEAN PLATELET VOLUME 9.4 fl (7.4-10.4); MONOCYTE # 0.4 10^3/ul (0.3-0.9); NEUTROPHIL # 4.2 10^3/ul (1.6-7.5); NEUTROPHILS % 47.8 % (39.0-77.0); PLATELET COUNT 280 10^3/UL (140-415); RED BLOOD COUNT 4.52 10^6/ul (4.20-5.40); RED CELL DISTRIBUTION WIDTH 16.1 % (11.5-14.5)
[2018-10-19 07:02] LABS: MAGNESIUM 2.2 mg/dl (1.7-2.5)
[2018-10-19 07:02] LABS: PHOSPHORUS 3.2 mg/dl (2.5-4.9)
[2018-10-19 07:14] LABS: BLOOD UREA NITROGEN 17 mg/dl (7-20); CARBON DIOXIDE 26 mmol/L (21-31); CREATININE 0.69 mg/dl (0.44-1.00); Estimated GFR > 60 mL/min (>60); GLUCOSE 105 mg/dl (70-220); SODIUM 140 mmol/L (135-144)
[2018-10-19 07:38] LABS: ANION GAP 8 (5-13); CHLORIDE 106 mmol/L (97-110)
[2018-10-19] MEDS: HEPARIN 5,000 UNIT/1 ML VIAL SC ×2 (08:41→21:51)
[2018-10-19] MEDS: LORATADINE 10 MG TAB PO (08:47)
[2018-10-19] MEDS: ARFORMOTEROL TARTRATE 15MCG/2 ML AMP HHN ×2 (09:36→19:59)
[2018-10-19] MEDS: BUDESONIDE (NEB) 0.5MG/2ML AMP HHN ×2 (09:36→19:59)
[2018-10-19] MEDS: LIDOCAINE 1% (MPF) 5 ML VIAL (10:59)
[2018-10-19] MEDS: SOD FERRIC GLUC COMPLX 125 MG in SOD CHLORIDE 0.9% 100 ML IVPB (12:55)
[2018-10-19] MEDS: SOD CHLORIDE 0.9% 1,000 ML IV (18:01)
[2018-10-19 18:59] LABS: LACTATE DEHYDROGENASE 406 IU/L (313-618)
[2018-10-19 20:54] LABS: IMMUNOGLOBULIN A < 40 mg/dl (70-400); IMMUNOGLOBULIN G < 270 mg/dl (700-1600); IMMUNOGLOBULIN M < 25 mg/dl (40-230)
[2018-10-19] MEDS: LEVOFLOXACIN 500MG/D5W (PMX) 100 ML IVPB (21:48)
[2018-10-19] MEDS: INSULIN GLARGINE [LANTus] (100 UNITS/ML) SYG SC (21:50)
[2018-10-20 06:23] LABS: ADD MAN DIFF? NO
[2018-10-20 06:27] LABS: WHITE BLOOD COUNT 8.8 10^3/ul (4.8-10.8)
[2018-10-20 06:27] LABS: BASOPHILS % 0.3 % (0.0-2.0); EOSINOPHILS # 0.1 10^3/ul (0.0-0.5); EOSINOPHILS % 1.2 % (0.0-7.0); HEMATOCRIT 30.1 % (37.0-47.0); HEMOGLOBIN 9.2 g/dl (12.0-16.0); LYMPHOCYTES # 3.9 10^3/ul (0.8-2.9); LYMPHOCYTES % 44.1 % (15.0-51.0); MEAN CORPUSCULAR HEMOGLOBIN 21.2 pg (29.0-33.0); MEAN CORPUSCULAR HGB CONC 30.6 g/dl (32.0-37.0); MEAN CORPUSCULAR VOLUME 69.4 fl (82.0-101.0); MEAN PLATELET VOLUME 9.5 fl (7.4-10.4); MONOCYTE # 0.5 10^3/ul (0.3-0.9); MONOCYTES % 5.8 % (0.0-11.0); NEUTROPHIL # 4.2 10^3/ul (1.6-7.5); NEUTROPHILS % 47.7 % (39.0-77.0); PLATELET COUNT 272 10^3/UL (140-415); RED BLOOD COUNT 4.34 10^6/ul (4.20-5.40)
[2018-10-20 06:58] LABS: ANION GAP 8 (5-13); BLOOD UREA NITROGEN 15 mg/dl (7-20); CALCIUM 8.7 mg/dl (8.4-10.2); CARBON DIOXIDE 27 mmol/L (21-31); CHLORIDE 102 mmol/L (97-110); CREATININE 0.59 mg/dl (0.44-1.00); Estimated GFR > 60 mL/min (>60); GLUCOSE 88 mg/dl (70-220); POTASSIUM 4.1 mmol/L (3.5-5.1); SODIUM 137 mmol/L (135-144)
[2018-10-20 07:13] LABS: PROTEIN, TOTAL 5.1 g/dL (6.1-8.1)
[2018-10-20] MEDS: INSULIN ASPART [NOVOLOG] 3 ML PEN SC ×6 (08:00→18:05)
[2018-10-20] MEDS: SOD CHLORIDE 0.9% 1,000 ML IV ×2 (08:10→09:15)
[2018-10-20] MEDS: HEPARIN 5,000 UNIT/1 ML VIAL SC (08:16)
[2018-10-20] MEDS: ARFORMOTEROL TARTRATE 15MCG/2 ML AMP HHN (08:44)
[2018-10-20] MEDS: BUDESONIDE (NEB) 0.5MG/2ML AMP HHN (08:44)
[2018-10-20] MEDS: LORATADINE 10 MG TAB PO (09:15)
[2018-10-20 10:19] LABS: OCCULT BLOOD STOOL NEGATIVE (NEGATIVE)
[2018-10-20] MEDS: SOD FERRIC GLUC COMPLX 125 MG in SOD CHLORIDE 0.9% 100 ML IVPB (12:10)
[2018-10-20 16:42] LABS: BETA-2 MICROGLOBULIN 3.48 mg/L (< OR = 2.51)
[2018-10-22 00:02] LABS: ALBUMIN 2.9 g/dL (3.8-4.8); ALPHA-1-GLOBULINS 0.5 g/dL (0.2-0.3); ALPHA-2-GLOBULINS 1.1 g/dL (0.5-0.9); BETA 2 GLOBULINS 0.2 g/dL (0.2-0.5); BETA GLOBULINS 0.4 g/dL (0.4-0.6); GAMMA GLOBULINS 0.1 g/dL (0.8-1.7)
== END 2018-10-20 18:18 | disposition home or self-care (01) | DRG 803 ==
LOC: E/R 19:46 → PP2 22:29
PROVIDERS: Internal Medicine
PROC: 07BH3ZX Excision of Right Inguinal Lymphatic, Percutaneous Approach, Diagnostic (ICD-10-PCS; principal; 2018-10-19)
DX: R59.1 Generalized enlarged lymph nodes (principal); N39.0 Urinary tract infection, site not specified; E11.9 Type 2 diabetes mellitus without complications; D50.0 Iron deficiency anemia secondary to blood loss (chronic)
CPT/HCPCS: 36415; 71045; 74176; 74177; 76942; 80048; 80053; 80061; 81001; 81003; 82164; 82270; 82784; 82962; 83036; 83540; 83615; 83690; 83735; 84100; 84155; 84165; 84443; 85025; 86320; 87081; 87086; 88305; 88313; 94640; 94664; 96374; 96375; 96376; 99285-25